=== PATIENT | male | born 1945 | race Caucasian/White ===

== ENCOUNTER → 2016-12-03 | Outpatient (CLI) | payer OTHER ==
--- NOTE | 2016-12-03 15:38 | DIAGNOSTIC IMAGING REPORT ---
SINUS CT CT DOSE: 269.19 mGycm HISTORY: CHRONIC SINUSITIS,DEV SEPTUM TECHNIQUE: Multiaxial CT images of the paranasal sinuses were performed and reformatted in the coronal plane without the use of contrast. A dose lowering technique was utilized adhering to the principles of ALARA. COMPARISON: None. FINDINGS: The frontal sinuses, ethmoid air cells, and sphenoid sinuses are clear. There is moderate mucosal thickening seen within the floors of the bilateral maxillary sinuses. No fluid levels within the paranasal sinuses. Partial opacification of the bilateral external auditory canal suggestive of cerumen. The mastoid air cells are clear. The bilateral ostiomeatal units are patent. Minimal rightward nasal septal deviation. The orbits are unremarkable. IMPRESSION: Moderate mucosal thickening within the floors of the bilateral maxillary sinuses. No fluid levels within the paranasal sinuses. Electronically signed by: Adrián Fairchild M.D. 12/03/2016 3:37 PM Dictated Date/Time: 12/03/2016 3:32 PM
== END | disposition home or self-care (01) ==
LOC: C.CTS 15:00
PROVIDERS: ATTEND Otolaryngology
DX: J32.0 Chronic maxillary sinusitis (principal); J34.2 Deviated nasal septum

== ENCOUNTER → 2016-12-25 | Day surgery (SDC) | payer OTHER ==
[2016-12-24 13:50] VITALS: Ht 167.6 cm; Wt 66.4 kg
[~2016-12-25] VITALS: Ht 167.6 cm; Wt 66.4 kg
[~2016-12-25] MED LIST: ASPI-435 PO; ATROPINE SULFATE 0.1 MG/ML 5ML SYR IV PRN; BACITRACIN OINT 15 GM TUBE ONE; CEFAZOLIN 1000MG IV PUSH 5 ML IV SCH; CHOL1000 PO; DEXAMETHASONE SOD INJ 4 MG/ML VIAL IV PRN; DEXAMETHASONE SOD INJ 4 MG/ML VIAL ONE; EpHEDrine SULFATE 50MG/5ML SYR ONE; EpHEDrine SULFATE INJ 50 MG/ML AMP IV PRN; EpINEphrine INJ 1MG/ML AMP 1 MG/ML AMP ONE; FENTANYL CITRATE INJ 50 MCG/1 ML 2 ML VIAL IV PRN; FENTANYL CITRATE INJ 50 MCG/1 ML 2 ML VIAL ONE; GELATIN SPONGE 12-7MM ONE; HYDR-5688 PO; HYDROCODONE/ACETAMOPHEN 5/325MG TAB PO PRN; KETOROLAC TROMETHAMINE 15 MG/ML VIAL IV. PRN; LABETALOL HCL IV 5 MG/ML 20ML IV PRN; LACTATED RINGER'S 1000ML 1,000 ML IV SCH; LIDO 2%/EPINEPHRINE 1:100000 20 ML VIAL INFIL ONE; LIDOCAINE 4% MPF SOAK 5 ML = 1 DOSE TOP ONE; LIDOCAINE HCL 2% 2 ML VIAL (20MG/ML) ONE; METOCLOPRAMIDE HCL INJ 5 MG/ML 2 ML VIAL IV PRN; MIDAZOLAM HCL 1 MG/ML 2ML VIAL ONE; MoRPHine SULFATE 10 MG/ML CARP/VIAL IV PRN; ONDANSETRON INJ 2 MG/ML 2 ML VIAL IV PRN; ONDANSETRON INJ 2 MG/ML 2 ML VIAL ONE; PHENYLEPHRINE 100MCG/ML 5ML SYR IV PRN; PROPOFOL IV EMULSION 10 MG/ML 20 ML VIAL IV ONE; SODIUM CHLORIDE 0.9% 1000ML 1,000 ML IV SCH; TAMS0.4C38 PO
--- NOTE | 2016-12-25 10:21 | History & Physical Bridge Note ---
H&P Re-Evaluation Bridge Note: I have examined the patient, reviewed the History & Physical and in the interval since the performance of the History & Physical I have noted the following changes of clinical significance: No changes noted
--- NOTE | 2016-12-25 12:38 | Discharge Instructions-SurgCtr ---
Discharge Instructions Date of Service Dec 25, 2016. Visit Reason for Visit: Chronic Sinusitis Discharge Discharge Diagnosis / Problem: same Discharge Goals Goal(s): Improve disease control Medications Stopped Medications Name(s): STOPPED ASA X 1 WEEK Activity Recommendations Activity Limitations: resume your previous activity Anesthesia . Post Anesthesia Instructions: If you have had General Anesthesia or IV Sedation: * Do not drive today. * Resume driving when surgeon permits. * Do not make important decisions or sign legal documents today. * Call surgeon for: 1. Temperature elevations greater than 101 degrees F. 2. Uncontrollable pain. 3. Excessive bleeding. 4. Persistent nausea and vomiting. 5. Medication intolerance (nausea, vomiting or rash). * For nausea and vomiting use only clear liquids such as: tea, soda, bouillon until nausea subsides, then gradually increase diet as tolerated. * If you have any concerns or questions, call your surgeon's office. If physician is unavailable and it is an emergency, call 911 or go to the nearest emergency room. . Instructions / Follow-Up Instructions / Follow-Up ACTIVITY RECOMMENDATIONS: * Being up and around is good, but no strenuous activity, heavy lifting or physical exertion for one week. * Keep your head elevated 30 degrees when lying down or sleeping. * Do not blow your nose for 48 hours, sniff back instead. * Avoid hot showers. OVER THE COUNTER MEDICATIONS: * You may use Tylenol * Avoid aspirin or aspirin containing products, e.g. as they may increase bleeding. SPECIAL CARE INSTRUCTIONS: * Expect to have bloody drainage from your nose and/or down your throat for one to three days. Change drip pad as needed. * Begin irrigating your nose with saline solution today, at least six to ten times per day and sniff back to help remove old clots or crust. * You may experience nasal and facial congestion, pain and pressure, this is normal. * Please call with any significant and/or progressive pain, redness, swelling around the eyes, visual changes, fever of 101.5 degrees F, active bleeding or any problems or concerns. * If active bleeding occurs, spray the nose three times at one minute intervals with Afrin spray and call or cell phone: . If unable to reach the doctor, go to the nearest Emergency Department. Special Diet: * Avoid extremely hot fluids. FOLLOW UP VISIT: Follow-up Visit with Dr. Mendez If not already scheduled, please call to schedule. Diet Recommendations Home Diet: no limitations Pending Studies Studies pending at discharge: no Medical Emergencies . Who to Call and When: Medical Emergencies: If at any time you feel your situation is an emergency, please call 911 immediately. . Non-Emergent Contact Non-Emergency issues call your: Primary Care Provider . . "Provider Documentation" section prepared by Cherry Mendez. . [place] Drug Monitoring Program Search Results: no issues identified
--- NOTE | 2016-12-25 14:40 | OPERATIVE REPORT ---
DATE OF OPERATION: 12/25/2016 PREOPERATIVE DIAGNOSIS: Chronic sinusitis. POSTOPERATIVE DIAGNOSIS: Same. PROCEDURE: Right and left frontal, right and left total ethmoid, and right and left maxillary antrostomy. SURGEON: Dr. Mendez. ANESTHESIA: General LMA. COMPLICATIONS: None. BLOOD LOSS: 50 mL HISTORY OF PRESENT ILLNESS: This 71-year-old man has had chronic sinusitis treated with multiple antibiotics by his family doctor, but failed medical therapy and desires definitive treatment. DESCRIPTION OF PROCEDURE: The patient brought to the operating room and placed in supine position. General anesthesia was induced using LMA. He was prepped and draped in usual sterile manner. The nose was decongested using cottonoids with a solution of 4 mL of 4% Xylocaine with 1 mL of epinephrine. Injection 2% Xylocaine with 1:100,000 strength epinephrine was also used. LSAT FreedomLAB device was calibrated and used for the entire procedure. The right maxillary sinus was cannulated with guidewire, dilated using a 6-mm balloon as was left maxillary sinus. The right nasofrontal duct was cannulated with guidewire with BrainLAB computer guidance and dilated using the 6-mm balloon. The balloon was insufflated then deflated. The guidewire was left in place as a marker as the balloon was withdrawn. The frontal sinusotomy was performed using the shaver coupled with the BrainLAB device, following the guidewire superiorly, removing the anterior wall, then the posterior wall of the agger nasi cell, widely opening up the nasofrontal duct, but leaving the mucosa there intact. At this point, total ethmoidectomy was performed. The bullae ethmoidalis was opened, the ground lamella was penetrated and the posterior ethmoid air cells were opened delineating the skull base superiorly and lamina papyracea laterally with the BrainLAB device and then following these structures anteriorly exonerating all the posterior and then all the anterior ethmoid air cells up to the previously dilated nasofrontal duct. The maxillary sinus was opened by removing the posterior border of the hiatus, semilunaris, which is the anterior wall of the bullae ethmoidalis. The left frontal sinusotomy, total ethmoidectomy and maxillary sinus antrostomy was performed in a similar manner. Propel stents were placed with mini stents in the nasofrontal ducts and regular stents in the middle meatus area. The patient tolerated the procedure well and was taken to the recovery area in satisfactory condition. I attest to the content of the Intraoperative Record and any orders documented therein. Any exceptions are noted below. MTDD
[2016-12-25 14:47] VITALS: TEMP 36.5
[2016-12-25 15:39] VITALS: BP 154/93; PULSE 71; O2SAT 95
--- NOTE | 2016-12-25 15:56 | Anesthesia Progress Nt - [facility] ---
Anesthesia Post Op Note Date & Time Dec 25, 2016 at 15:56 Vital Signs Pain Intensity: 6.0 Vital Signs Past 12 Hours Date Time Temp Pulse Resp B/P (MAP) Pulse Ox O2 Delivery O2 Flow Rate FiO2 12/25/16 15:39 71 16 154/93 (113) 95 Room Air 12/25/16 15:19 78 16 162/92 (115) 96 Room Air 12/25/16 14:54 79 3 91 12/25/16 14:54 76 3 12/25/16 14:54 79 3 91 12/25/16 14:54 76 3 12/25/16 14:51 155/91 12/25/16 14:51 155/91 12/25/16 14:49 80 15 12/25/16 14:49 81 15 91 12/25/16 14:49 80 15 12/25/16 14:49 81 15 91 12/25/16 14:47 36.5 77 12 155/91 92 Room Air 12/25/16 14:46 153/92 12/25/16 14:46 153/92 12/25/16 14:44 82 15 12/25/16 14:44 82 15 93 12/25/16 14:44 82 15 12/25/16 14:44 82 15 93 12/25/16 14:41 139/92 12/25/16 14:41 139/92 12/25/16 14:39 80 8 97 12/25/16 14:39 80 8 97 12/25/16 14:39 81 8 12/25/16 14:39 81 8 12/25/16 14:36 155/94 12/25/16 14:36 155/94 12/25/16 14:34 78 15 94 12/25/16 14:34 78 15 94 12/25/16 14:34 79 15 12/25/16 14:34 79 15 12/25/16 14:31 145/90 12/25/16 14:31 145/90 12/25/16 14:29 78 20 93 12/25/16 14:29 79 20 12/25/16 14:29 78 20 93 12/25/16 14:29 79 20 12/25/16 14:26 155/93 12/25/16 14:26 155/93 12/25/16 14:24 82 9 12/25/16 14:24 80 9 94 12/25/16 14:24 80 9 94 12/25/16 14:24 82 9 12/25/16 14:21 154/86 12/25/16 14:21 154/86 12/25/16 14:19 74 18 12/25/16 14:19 75 18 95 12/25/16 14:19 74 18 12/25/16 14:19 75 18 95 12/25/16 14:16 154/92 12/25/16 14:16 154/92 12/25/16 14:14 80 12 12/25/16 14:14 79 12 96 12/25/16 14:14 79 12 96 12/25/16 14:14 80 12 12/25/16 14:11 156/90 12/25/16 14:11 156/90 12/25/16 14:09 79 17 97 12/25/16 14:09 79 17 12/25/16 14:09 79 17 12/25/16 14:09 79 17 97 12/25/16 14:06 157/86 12/25/16 14:06 157/86 12/25/16 14:04 81 20 12/25/16 14:04 81 20 97 12/25/16 14:04 81 20 12/25/16 14:04 81 20 97 12/25/16 14:02 148/87 12/25/16 14:02 148/87 12/25/16 13:59 152/80 12/25/16 13:59 152/80 12/25/16 13:59 36.4 82 16 152/80 96 Humidified Oxygen 4 Mask 12/25/16 10:13 36.5 63 16 159/92 (114) 97 Room Air Notes Mental Status: alert / awake / arousable, participated in evaluation Pt Amnestic to Procedure: Yes Nausea / Vomiting: adequately controlled Pain: adequately controlled Airway Patency, RR, SpO2: stable & adequate BP & HR: stable & adequate Hydration State: stable & adequate Anesthetic Complications: no major complications apparent
== END | disposition home or self-care (01) ==
LOC: X.SURG 09:47
PROVIDERS: ATTEND Otolaryngology
DX: J32.9 Chronic sinusitis, unspecified (principal)